=== PATIENT | female | born 1985 | race Caucasian/White ===

== ENCOUNTER → 2016-10-31 | Outpatient (CLI) | payer BC ==
--- NOTE | 2016-10-31 20:46 | REP ---
Clinical: Anatomical evaluation. Comparison: None . Findings: Examination demonstrates a single live intrauterine in cephalic presentation. motion is identified by technologist. Placenta is noted anteriorly and grade zero without evidence for placenta previa or abruption. Amniotic fluid volume is normal. Cervix measures 4.5 cm in length and appears closed. No evidence for nuchal cord. Gestational age by LMP 30 weeks 6 days with WILDA 01/03/2017 . Gestational age by current measurements 30 weeks 0 days with WILDA based 01/09/2017 . FHR equals 147 beats per minute. BPD 7.4 cm 29 weeks 5 day HC 28.1 cm 30 week 6 days AC 24.9 cm 29 weeks 1 day FL 5.8 cm 30 weeks 1 day HL 5.2 cm 830 weeks 2 days HC/AC ratio 1.13 Estimated weight 1428 grams ( 17th percentile). Amniotic fluid index equals 11.7 cm (8.8 - 23.8). Anatomical assessment demonstrates normal structures including lungs, four-chamber heart/ left ventricular outflow tract, diaphragm, stomach, cord insertion/three-vessel cord, kidneys/bladder, and lower extremities. New Suboptimal evaluation of the cranium, cord plexus, cavum, facial features, right cardiac ventricular outflow tracts, spine, and upper extremities noted. Impression: 1. Live intrauterine in cephalic presentation demonstrating appropriate interval growth. 2. Anatomical limitations as described above. Signed by Wily Conley MD 10/31/2016 05:15 P
== END ==
LOC: M RAD 14:41
PROVIDERS: ATTEND Obstetrics & Gynecology
DX: Z34.82 Encounter for supervision of other normal pregnancy, second trimester (principal)

== ENCOUNTER → 2016-11-12 | Outpatient (REF) | payer BC | LOC: M LAB REF 16:30 | PROVIDERS: ATTEND Advanced Practice Midwife | DX: Z34.83 Encounter for supervision of other normal pregnancy, third trimester (principal) ==

== ENCOUNTER → 2016-12-10 | Outpatient (REF) | payer OTHER | LOC: M LAB REF 13:32 | PROVIDERS: ATTEND Advanced Practice Midwife | DX: Z34.83 Encounter for supervision of other normal pregnancy, third trimester (principal) ==

== ENCOUNTER 2017-01-04 15:59 | Outpatient (CLI) | payer OTHER ==
[2017-01-04] VITALS (9 sets, daily range): BP systolic 130–157; BP diastolic 65–90
[~2017-01-04] VITALS: Ht 172.7 cm; Wt 138.0 kg
[2017-01-04 17:59] LABS: MEAN CORPUSCULAR HEMOGLOBIN 27.3 pg (27.0-33.0); MEAN CORPUSCULAR VOLUME 82.7 fl (80.0-96.0); RED CELL DISTRIBUTION WIDTH 13.7 % (11.5-14.5); WHITE BLOOD COUNT 11.4 K/mm3 (4.0-10.0)
[2017-01-04 18:19] LABS: ALT/SGPT 14 U/L (12-78); AST/SGOT 17 U/L (15-37); BILIRUBIN,TOTAL 0.4 MG/DL (0.2-1.0); CREATININE FOR GFR 0.61 MG/DL (0.55-1.02); GLOMERULAR FILTRATION RATE > 60.0 (>60); URIC ACID 6.3 MG/DL (2.6-6.0)
--- NOTE | 2017-01-10 02:10 | DSES ---
DATE OF ADMISSION: 01/04/2017 DATE OF DISCHARGE: 01/04/2017 HISTORY: 31-year-old (G) 2, para (P) 1 female at 40-1/7 weeks gestation presents with complaint of loss of fluid on the day of evaluation. She felt wet for most of the day. Denies contractions. Her care has been through [facility], Dr. Edouard. [place] care [place] of [place]. OBSTETRICAL HISTORY: She has a history of a section 2005. HOSPITAL COURSE: The patient was evaluated on multiple occasions for ruptured membranes. There was no evidence that that was the case. She had rare occasional elevated blood pressures, so had preeclampsia labs drawn, which were normal. She had some occasional contractions which occurred during her hospitalization, but no dilation of her cervix. The cervix remained unchanged. Fetus had a category 1 tracing at all times. Given the patient was stable, had no indication for delivery, the decision was made to discharge the patient home the same day. ADMISSION DIAGNOSIS: 40-1/7 weeks gestation, prior (C) section, reassuring testing. DISCHARGE DIAGNOSIS: 40-1/7 weeks gestation, prior (C) section, reassuring testing. The patient will followup with Dr. Edouard in two days. She will return with any concerns.
== END 2017-01-04 19:39 | disposition home or self-care (01) ==
LOC: M LDO 15:59
PROVIDERS: ATTEND Specialist
DX: O47.1 False labor at or after 37 completed weeks of gestation (principal); Z3A.40 40 weeks gestation of pregnancy

== ENCOUNTER 2017-01-05 07:08 | Inpatient (IN) | payer OTHER ==
[~2017-01-05] VITALS: Ht 162.6 cm; Wt 134.0 kg
[2017-01-05 07:25] VITALS: BP 137/71
[2017-01-05] MEDS ORDERED: LACTATED RINGER'S 1000 ML IV STA (07:43)
[2017-01-05] MEDS ORDERED: LR 1,000 ML IV SCH (07:43)
[2017-01-05] MEDS ORDERED: CLINDAMYCIN 900 MG in APPROPRIATE DILUENT 1 EA IV SCH (08:00)
[2017-01-05 08:16] LABS: MEAN CORPUSCULAR HEMOGLOBIN 27.3 pg (27.0-33.0); MEAN CORPUSCULAR HGB CONC 33.2 g/dl (32.0-36.5); MEAN CORPUSCULAR VOLUME 82.1 fl (80.0-96.0); WHITE BLOOD COUNT 8.4 K/mm3 (4.0-10.0)
--- NOTE | 2017-01-05 08:35 | HPE ---
DATE OF ADMISSION: 01/05/2017 31-year-old 2, para 1-0-0-1, estimated date of delivery 01/03/2017 presents at 40 weeks 2 days with reports of stronger contractions through the night. Denies loss of fluid or bleeding. Fetus is active. Last normal menstrual period 03/29/2016 for estimated date of delivery of 01/02/2017, sonogram at 8 weeks confirmed her date of 01/03/2017. Commenced care in [place] and transferred to [email or web address] at 32 weeks. Available anatomy reports show normal anatomy with exception of poor visualization of cardiac structures. Followup sono at 30 weeks showed growth of 17%, cephalic and normal cardiac anatomy. OBSTETRICAL HISTORY: 2007 primary for heart rate decelerations at 40 weeks, viable female. ALLERGIES: She is allergic to CODEINE, DEMEROL, MORPHINE, PENICILLIN, PENICILLIN CROSS REACTORS, SULFA, CIPRO. MEDICAL/SURGICAL HISTORY: History of anemia, tonsillectomy, appendectomy and section. FAMILY HISTORY: Breast and lung cancer, gastroesophageal reflux disease, and elevated cholesterol. SOCIAL HISTORY: Father of the baby is present and supportive. Denies tobacco, alcohol, drugs or abuse. History of Chlamydia. OBJECTIVE: Prepregnancy weight 302, total weight gain 11 pounds. O+, antibody negative, Pap within normal limits in 2013, rubella immune. VDRL, hep B, hep C, HIV, gonorrhea, Chlamydia all negative. [place] was low risk. 1-hour glucose 149. 3-hour 90, 155, 128 and 53. Group B strep is positive with sensitivities. Mildly uncomfortable. Vital signs are stable. Abdomen is obese, soft, gravid, longitudinal lie. Bedside sonogram confirms vertex presentation. heart 145, minimal to moderate variability. A few accelerations are present. Uterine contractions two to four minutes apart and mild. Sterile vaginal exam now 1-2 cm, 50% and -[address] Ge, changed from overnight. ASSESSMENT: Multip at term, early labor, previous , category 2 tracing. PLAN: Admit per consult Dr. Ge. The patient has expressed desire for trial of labor after section (TOLAC). Risks reviewed up to and including uterine rupture and consent has been obtained. Group B strep prophylaxis. The patient desires epidural. Consider Pitocin augmentation or artificial rupture of membranes as needed. Dr. Ge agrees with plan. Anticipate a successful TOLAC.
[2017-01-05 08:46] VITALS: BP 129/71
[2017-01-05 09:36] VITALS: BP 141/82
[2017-01-05 10:45] VITALS: BP 116/68
[2017-01-05 11:31] VITALS: BP 117/59
[2017-01-07] MEDS ORDERED: ADACEL/BOOSTRIX VACCINE (DIPHTH/PERTUSS/ACELL/TETANUS)0.5ML SYR (90715) IM ONE (09:00)
== END 2017-01-05 12:05 | disposition home or self-care (01) | DRG 566 ==
LOC: M LDO 07:08 → M LDI 07:40
PROVIDERS: ADMIT Specialist; ATTEND Specialist
DX: O48.0 Post-term pregnancy (principal); Z88.0 Allergy status to penicillin; Z3A.40 40 weeks gestation of pregnancy; Z88.2 Allergy status to sulfonamides; Z88.1 Allergy status to other antibiotic agents; Z88.5 Allergy status to narcotic agent; Z80.3 Family history of malignant neoplasm of breast; Z80.1 Family history of malignant neoplasm of trachea, bronchus and lung; Z83.79 Family history of other diseases of the digestive system

== ENCOUNTER 2017-01-06 14:59 | Inpatient (IN) | payer OTHER ==
[2017-01-06] VITALS (12 sets, daily range): BP systolic 125–167; BP diastolic 62–77
[~2017-01-06] VITALS: Ht 172.7 cm; Wt 138.0 kg
[2017-01-06] MEDS ORDERED: LR 1,000 ML IV SCH (15:15)
[2017-01-06] MEDS ORDERED: LACTATED RINGER'S 1000 ML IV ONE (15:15)
[2017-01-06 16:17] LABS: MEAN CORPUSCULAR HEMOGLOBIN 27.4 pg (27.0-33.0); MEAN CORPUSCULAR HGB CONC 32.9 g/dl (32.0-36.5); MEAN CORPUSCULAR VOLUME 83.1 fl (80.0-96.0); RED CELL DISTRIBUTION WIDTH 13.9 % (11.5-14.5); WHITE BLOOD COUNT 8.5 K/mm3 (4.0-10.0)
[2017-01-06 16:39] LABS: ALT/SGPT 14 U/L (12-78); AST/SGOT 16 U/L (15-37); BILIRUBIN,TOTAL 0.6 MG/DL (0.2-1.0); CREATININE FOR GFR 0.62 MG/DL (0.55-1.02); GLOMERULAR FILTRATION RATE > 60.0 (>60)
[2017-01-06] MEDS ORDERED: AZITHROMYCIN INJ 500 MG, VIAL MATE ADAPTER 1 EACH in D5W 250 ML IV ONE (19:30)
[2017-01-06] MEDS ORDERED: BICITRA 30ML SOLN UDC PO ONE (19:30)
[2017-01-06] MEDS ORDERED: OXYTOCIN INJ 10 UNITS/ML VIAL (J2590) As Ordered ONE (19:44)
[2017-01-06] MEDS ORDERED: MORPHINE PRES-FREE INJ 10 MG/10 ML VIAL (J2274) As Ordered ONE (19:45)
[2017-01-06] MEDS ORDERED: dexameTHASONE 4 MG/ML 1ML VIAL (J1100) As Ordered ONE (21:08)
[2017-01-06] MEDS ORDERED: NALBUPHINE HCL 10 MG/ML AMP (J2300) IV PRN (21:18)
[2017-01-06] MEDS ORDERED: NALOXONE INJ 0.4 MG/1 ML VIAL (J2310) IV PRN ×2 (21:18)
[2017-01-06] MEDS ORDERED: METOCLOPRAMIDE INJ 10MG/2ML VIAL (J2765) IV PRN (21:18)
[2017-01-06] MEDS ORDERED: ONDANSETRON 4MG/2ML VIAL (J2405) IV PRN ×3 (21:18→23:00)
[2017-01-06] MEDS ORDERED: ONDANSETRON 4MG/2ML VIAL (J2405) As Ordered ONE (21:35)
[2017-01-06] MEDS ORDERED: KETOROLAC 60 MG/2 ML VIAL (J1885) As Ordered ONE (21:35)
[2017-01-06] MEDS ORDERED: PHENYLephrine HCL 500 MCG/5 ML (100MCG/ML) SYRINGE (J2370) As Ordered ONE (21:35)
[2017-01-06] MEDS ORDERED: MEASLES,MUMPS,RUBELLA VACCINE INJ (MMR-II) (90707) SC SCH (22:45)
[2017-01-06] MEDS ORDERED: RHOGAM 300 MCG (1500 IU) INJ (J2790) IM SCH (22:45)
[2017-01-06] MEDS ORDERED: MOM 30ML SUSPENSION UDC PO PRN (22:45)
[2017-01-06 22:49] LABS: CORD GAS ABE V -3.3; CORD GAS HCO3 V 22.5 MEQ/L; CORD GAS O2 SAT V 44.3 %; CORD GAS PCO2 V 43.1 mmHg; CORD GAS PH V 7.336 UNITS; CORD GAS PO2 V 20.1 mmHg; CORD GAS SBC V 20.4 MEQ/L; CORD GAS TCO2 V 23.8 MEQ/L
[2017-01-06 22:52] LABS: CORD GAS ABE A -5.7; CORD GAS HCO3 A 21.2 MEQ/L; CORD GAS O2 SAT A 33.7 %; CORD GAS PCO2 A 46.8 mmHg; CORD GAS PH A 7.274 UNITS; CORD GAS PO2 A 16.6 mmHg; CORD GAS SBC A 18.4 MEQ/L; CORD GAS TCO2 A 22.6 MEQ/L
[2017-01-06] MEDS ORDERED: fentaNYL 100 MCG/2 ML INJECTION (J3010) IV PRN (23:00)
--- NOTE | 2017-01-06 23:11 | HPE ---
DATE OF ADMISSION: 01/06/2017 Margo is a 31-year-old female, 2, para 1-0-0-1 with a history of prior section, estimated date of delivery (EDC) 01/03/2017, estimated gestational age (EGA) 40-3/7 weeks gestation. The patient is being admitted for delivery via section. She wanted to try a trial of labor. However, at this point she is declining to proceed with a trial of labor. She does have -induced hypertension towards the last week of her . Upon evaluation in the office she was found to have an elevated blood pressure. The patient was originally scheduled for section on 01/10. Given her elevated blood pressure and the fact that she wants to proceed with repeat section a decision was made to admit her to the hospital for repeat section. Upon admission no bleeding or leakage of fluid. No headache. No blurred vision. Her record reviewed. The patient is obese, had a section for distress. Blood type is O+, rubella immune, hepatitis negative, HIV negative, GC chlamydia negative, 1-hour sugar testing was within normal limits. Her GBS is positive. PAST MEDICAL HISTORY: Significant for anemia. PAST SURGICAL HISTORY: section times one, appendectomy and tonsillectomy. SOCIAL HISTORY: She denies any alcohol or drug use. She had history of chlamydia back in 2012. FAMILY HISTORY: Significant for breast cancer, lung cancer and hypercholesterolemia. MEDICATIONS: vitamins. ALLERGIES: PENICILLIN, SULFA DRUGS and CIPRO. REVIEW OF SYSTEMS: Unremarkable. PHYSICAL EXAMINATION: Obese female in no acute distress. Abdomen: Soft, nontender, nondistended. Extremities: No clubbing, cyanosis or edema. Vaginal examination: Fingertip to 1 cm thick and posterior. Fetus at -3 station. Category one tracing with occasional contractions. ASSESSMENT: 1. Intrauterine at 40-3/7 weeks gestation with a history of prior section being admitted for elective repeat section. 2. -induced hypertension towards the last week of gestation. PLAN: Admit to labor and delivery. Routine labs sent. Informed consent signed for repeat section. Risks and benefits discussed with the patient. Will await OR for repeat section.
[2017-01-07] VITALS (9 sets, daily range): BP systolic 111–144; BP diastolic 59–76
[2017-01-07] MEDS: LR 1,000 ML IV SCH ×4 (02:55→22:31)
[2017-01-07] MEDS: IBUPROFEN 800 MG TAB PO SCH ×3 (06:00→21:33)
[2017-01-07 06:39] LABS: MEAN CORPUSCULAR HEMOGLOBIN 27.6 pg (27.0-33.0); MEAN CORPUSCULAR HGB CONC 33.3 g/dl (32.0-36.5); MEAN CORPUSCULAR VOLUME 82.8 fl (80.0-96.0); RED CELL DISTRIBUTION WIDTH 13.8 % (11.5-14.5); WHITE BLOOD COUNT 12.4 K/mm3 (4.0-10.0)
[2017-01-07] MEDS: PRENATAL VITAMINS CHEWABLE TABLET PO SCH (09:00)
[2017-01-07] MEDS: DOCUSATE SODIUM 100 MG CAP PO SCH ×2 (11:33→21:32)
[2017-01-08 05:59] VITALS: BP 127/60
[2017-01-08] MEDS: LR 1,000 ML IV SCH (06:31)
[2017-01-08] MEDS: IBUPROFEN 800 MG TAB PO SCH ×3 (06:44→22:19)
[2017-01-08] MEDS ORDERED: ACETAMINOPHEN 500 MG TAB PO PRN (07:45)
[2017-01-08] MEDS: DOCUSATE SODIUM 100 MG CAP PO SCH ×2 (09:00→19:44)
[2017-01-08] MEDS: PRENATAL VITAMINS CHEWABLE TABLET PO SCH (09:00)
[2017-01-08] MEDS: ONDANSETRON 4 MG TAB (S0181) PO PRN ×2 (11:55→19:43)
[2017-01-08] MEDS: NORCO, ANEXSIA 5/325MG TABLET (HYDROcodone/ACETAMINOPHEN) PO PRN ×2 (11:56→19:42)
--- NOTE | 2017-01-08 14:12 | RO ---
DATE OF PROCEDURE: 01/06/2017 Margo is a 31-year-old female 2, para 1-0-0-1 with a history of prior section who is being admitted at 40-3/7 weeks gestation with induced hypertension for elective repeat section. PREOPERATIVE DIAGNOSES: 1. Intrauterine at 40-3/7 weeks gestation with a history of prior section for elective repeat c/s 2. Elevated blood pressure. 3. Obesity POSTOPERATIVE DIAGNOSES: 1. Intrauterine at 40-3/7 weeks gestation with a history of prior section for elective repeat c/s 2. Elevated blood pressure. 3. Obesity 4. Meconium-stained fluid. 5. Nuchal cord times one. PROCEDURE: Repeat section. SURGEON: Steve Edouard DO AUTHORIZER: Roger Milton DO ANESTHESIA: Spinal. COMPLICATIONS: None. ESTIMATED BLOOD LOSS: 500 mL. FINDINGS: Live female infant in left occiput transverse position. scores of 8 and 9. weight 6 pounds 2 ounces. Normal-appearing placenta and ovaries. DESCRIPTION OF PROCEDURE: After obtaining informed consent, the patient was taken to the operating room where spinal anesthetic was found to be adequate. She was draped and prepped in the usual sterile fashion in supine position. At this point, an elliptical incision was made over the old scar. The old scar was removed. The incision was carried down to the fascia. The fascia was incised in a midline fashion and carried through laterally. Superior aspect of the fascia then grasped with two Johnnie clamps, tented off and dissected off the rectus muscles sharply. The inferior aspect was dissected in a similar fashion. Rectus muscles midline fashion. Perineum identified. Peritoneal cavity entered bluntly. Superior and inferior dissection was then grasped with two Johnnie clamps, tented off and dissected off the rectus muscles sharply. The inferior aspect was dissected off in a similar fashion. Rectus muscles midline fashion. Perineum identified. Peritoneal cavity entered bluntly. Superior and inferior dissection of peritoneum was then done with good visualization of the bladder. At this point a Mobius skin retractor was placed and a low-transverse uterine incision was made. was delivered in atraumatic fashion. Nose and mouth bulb suctioned. Cord doubly clamped and cut and was handed over to the waiting warmer. Cord blood and cord gas was sent. Placenta removed manually. Uterus cleared of all clot and debris and uterine incision was then repaired in two separate layers of #0 Vicryl sutures. Pelvis copiously irrigated with normal saline and suctioned out. Attention turned to the peritoneum, which was closed in a running fashion using #2-0 Vicryl. All superficial bleeders coagulated. Fascia closed in two separate segment of #0 Vicryl sutures and the skin was reapproximated in subcuticular fashion using #3-0 Vicryl on a Jorge. Steri-Strips placed. The patient tolerated procedure well. She was then transferred to the recovery room in stable condition. AGUSTIN
[2017-01-08 17:56] VITALS: BP 140/76
--- NOTE | 2017-01-08 19:11 | IPNPDOC ---
Date Seen The patient was seen on 01/08/17 at 0900. Progress Note SUBJECTIVE: Patient reports she has had pain but is afraid to take anything stronger than a Motrin because she gets terrible nausea from pain medication. Patient desires an antiemetic before she will take any type of narcotic. Reports she has been OOB and has been voiding. OBJECTIVE PHYSICAL EXAMINATION: VITAL SIGNS: Please see below. RESPIRATORY: Regular rate. No use of accessory muscles. ABDOMINAL: low transverse incision is approximated. Dry with no drainage. Steri- strips in place. PERINEUM: Lochia scant dark red. EXTREMITIES: Bilateral +1 pitting edema on feet and ankles. LABORATORY DATA: Please see below. ASSESSMENT: Day 2 . PLAN: Zofran and [place] ordered. Continue supportive nursing care. Anticipate discharge to home tomorrow. VS, I&O, 24H, Fishbone Vital Signs/I&O Vital Signs Date Time Temp Pulse Resp B/P (MAP) Pulse Ox O2 Delivery O2 Flow Rate FiO2 01/08/17 11:56 18 01/08/17 05:59 98.4 76 127/60 (82) 01/07/17 18:03 98 Room Air Laboratory Data CBC/BMP Item Value Date Time White Blood Count 12.4 K/mm3 H 01/07/17 0623 Red Blood Count 3.63 M/mm3 L 01/07/17 0623 Hemoglobin 10.0 g/dl L 01/07/17 0623 Hematocrit 30.1 % L 01/07/17 0623 Platelet Count 275 k/mm3 01/07/17 0623 LENO JACK CNM Jan 08, 2017 13:09
[2017-01-09] MEDS: IBUPROFEN 800 MG TAB PO SCH (05:08)
[2017-01-09 05:44] VITALS: BP 127/62
[2017-01-09] MEDS: PRENATAL VITAMINS CHEWABLE TABLET PO SCH (09:00)
[2017-01-09] MEDS: NORCO, ANEXSIA 5/325MG TABLET (HYDROcodone/ACETAMINOPHEN) PO PRN (09:21)
[2017-01-09] MEDS: DOCUSATE SODIUM 100 MG CAP PO SCH (09:21)
[2017-01-09] MEDS: ONDANSETRON 4 MG TAB (S0181) PO PRN (09:25)
[2017-01-09] MEDS ORDERED: PRENTAB9 PO (09:39)
[2017-01-09] MEDS ORDERED: IBUP-1114 PO (09:39)
[2017-01-09] MEDS ORDERED: ACET50TA PO (09:39)
--- NOTE | 2017-01-13 19:34 | DS.PDOC ---
Discharge Summary General Date of Admission Jan 06, 2017 at 14:59 Date of Discharge January 09, 2017. Attending Physician: Steve Edouard DO Discharge Summary PROCEDURES PERFORMED DURING STAY: Elective repeat section. ADMITTING DIAGNOSES: 1. IUP at 40 weeks 3 days gestation. 2. Gestational hypertension. 3. History of a section. DISCHARGE DIAGNOSES: 1. Day 3 postoperative from a low transverse elective repeat section. COMPLICATIONS/CHIEF COMPLAINT: Prior C/S. HISTORY OF PRESENT ILLNESS: Patient is a 31-year-old female who is now a 002 at 40 weeks 3 days gestation. Her has been complicated with a history of a prior at term and gestational hypertension. The patient previously desired a trial of labor but now declines the trial of labor and desires an elective repeat section. DISCHARGE MEDICATIONS: Please see below. [place] sent to pharmacy from office. ALLERGIES: Please see below. PHYSICAL EXAMINATION ON DISCHARGE: VITAL SIGNS: Please see below. GENERAL: A and O 3. RESPIRATORY EXAMINATION: Rate is regular. No use of accessory muscles. ABDOMINAL EXAMINATION: Low transverse abdominal incision: Edges are approximated. Steri-Strips are in place. No drainage noted. PERINEUM: Scant dark red vaginal bleeding. EXTREMITIES: Generalized edema located bilateral legs feet and ankles. LABORATORY DATA: Please see below. ACTIVITY: As tolerated. DIET: Regular. DISCHARGE INSTRUCTIONS: 1. Patient to be discharged to home. Follow-up in 2 weeks for incision check and 6 weeks .. 2. Education done with patient on mastitis, hemorrhage, endometritis, DVT's, pulmonary embolism, preeclamptic signs and symptoms, pain management, pelvic rest, was prepped depression and psychosis, signs symptoms of infection at the incision site, and incision care. Patient is to call office with any of these signs or symptoms. DISCHARGE CONDITION: Stable. Vital Signs/I&Os Vital Signs Date Time Temp Pulse Resp B/P (MAP) Pulse Ox O2 Delivery O2 Flow Rate FiO2 01/09/17 09:21 18 01/09/17 05:44 97.9 79 127/62 (83) 01/08/17 20:12 Room Air 01/07/17 18:03 98 Discharge Medications Scheduled Multivitamins/ ( 27-0.8 mg) 1 Tab Tab, 1 TAB PO DAILY, (Reported ) Scheduled PRN Acetaminophen (Mapap) 500 Mg Tab, 1,000 MG PO Q6HP PRN for PAIN, (Reported) Ibuprofen (Ibuprofen) 400 Mg Tab, 800 MG PO Q8HP PRN for PAIN, (Reported) Allergies Coded Allergies: Penicillins (Verified Allergy, Intermediate, HIVES, 12/27/16) Sulfa Drugs (Verified Allergy, Intermediate, HIVES, 12/27/16) Codeine (Verified Adverse Reaction, Mild, NAUSEA, 01/06/17) Meperidine (Verified Adverse Reaction, Mild, nausea/vomiting..dizziness, ) Morphine (Verified Adverse Reaction, Mild, nausea/vomiting..dizziness, ) LENO JACK CNM Jan 13, 2017 19:34
== END 2017-01-09 10:50 | disposition home or self-care (01) | DRG 540 ==
LOC: M LDI 14:59 → M OBS 01-07 00:22
PROVIDERS: ADMIT Obstetrics & Gynecology; ATTEND Obstetrics & Gynecology
PROC: 10D00Z1 Extraction of Products of Conception, Low, Open Approach (ICD-10-PCS; principal; 2017-01-06 09:40)
DX: O34.211 Maternal care for low transverse scar from previous cesarean delivery (principal); O13.4 Gestational [pregnancy-induced] hypertension without significant proteinuria, complicating childbirth; O99.214 Obesity complicating childbirth; E66.9 Obesity, unspecified; Z3A.40 40 weeks gestation of pregnancy; O99.824 Streptococcus B carrier state complicating childbirth; O69.82X0 Labor and delivery complicated by other cord entanglement, without compression, not applicable or unspecified; O77.0 Labor and delivery complicated by meconium in amniotic fluid; Z37.0 Single live birth

== ENCOUNTER → 2018-03-26 | Outpatient (REF) | payer OTHER | LOC: M LAB REF 17:31 | DX: J02.9 Acute pharyngitis, unspecified (principal) ==

== ENCOUNTER → 2020-01-05 | Outpatient (REF) | payer OTHER ==
[~2020-01-05] MED LIST: IBUP-1114 PO; MAPA500T2 PO; PRENTAB9 PO
== END ==
LOC: M LAB REF 11:36
PROVIDERS: ATTEND Obstetrics & Gynecology
DX: L66.2 Folliculitis decalvans (principal)

== ENCOUNTER → 2020-09-26 | Outpatient (REF) | payer OTHER ==
[2020-09-26 18:02] LABS: HEMATOCRIT 40.8 % (36.0-47.0); HEMOGLOBIN 12.5 g/dl (12.0-15.5); MEAN CORPUSCULAR HGB CONC 30.6 g/dl (32.0-36.5); MEAN CORPUSCULAR VOLUME 84.8 fl (80.0-96.0); PLATELET COUNT, AUTOMATED 459 10^3/uL (150-450); RED BLOOD COUNT 4.81 10^6/uL (4.00-5.40); WHITE BLOOD COUNT 11.1 10^3/uL (4.0-10.0)
[2020-09-26 18:40] LABS: HEMOGLOBIN A1c 5.2 %
[2020-09-26 19:07] LABS: HCG, SERUM QUANTITATIVE 17804 MIU/ML; HEPATITIS C VIRUS ABY INDEX < 0.0 INDEX (<0.8); HIV 1&2 SCREEN CENTAUR NEGATIVE (NEGATIVE)
== END ==
LOC: M LAB REF 16:34
PROVIDERS: ATTEND Advanced Practice Midwife
DX: O36.80X0 Pregnancy with inconclusive fetal viability, not applicable or unspecified (principal)

== ENCOUNTER → 2021-01-02 | Outpatient (CLI) | payer OTHER ==
--- NOTE | 2021-01-02 15:00 | REP ---
INDICATION: ANATOMY COMPARISON: None. TECHNIQUE: Transabdominal obstetrical ultrasound with color Doppler evaluation. FINDINGS: Examination demonstrates a single live intrauterine in transverse presentation. motion is identified by technologist. Placenta is noted anterior and grade 1 without evidence for placenta previa or abruption. Amniotic fluid volume is normal. Cervix measures 5.6 cm in length and appears closed.. Selected gestational age: 21 weeks 0 days with WILDA 05/15/2021. Gestational age by current measurements 20 weeks 2 days with WILDA 05/20/2021. FHR equals 143 beats per minute. Estimated weight 344 grams (15thpercentile). Anatomical assessment demonstrates normal structures including cranium, choroid plexus, cavum, cerebellum/posterior fossa, lungs, diaphragm, stomach, cord insertion/three-vessel cord, kidneys/bladder, spine, and extremities. IMPRESSION: Single live intrauterine in transverse lie demonstrating appropriate interval growth. Limited evaluation of the facial features and heart/ventricular outflow tracts. Remainder of the anatomical assessment is complete and normal. <Electronically signed by Wily Conley > 01/02/21 [id number]
== END ==
LOC: M WHC 13:55
PROVIDERS: ATTEND Obstetrics & Gynecology
DX: O34.212 Maternal care for vertical scar from previous cesarean delivery (principal); Z3A.21 21 weeks gestation of pregnancy

== ENCOUNTER → 2021-02-20 | Outpatient (CLI) | payer OTHER | LOC: M PLALAB 10:51 | PROVIDERS: ATTEND Obstetrics & Gynecology | DX: O34.212 Maternal care for vertical scar from previous cesarean delivery (principal); Z53.8 Procedure and treatment not carried out for other reasons ==

== ENCOUNTER → 2021-02-20 | Outpatient (CLI) | payer OTHER ==
[2021-02-20 13:26] LABS: HEMATOCRIT 38.6 % (36.0-47.0); HEMOGLOBIN 12.1 g/dl (12.0-15.5); MEAN CORPUSCULAR HEMOGLOBIN 26.4 pg (27.0-33.0); MEAN CORPUSCULAR HGB CONC 31.3 g/dl (32.0-36.5); MEAN CORPUSCULAR VOLUME 84.1 fl (80.0-96.0); PLATELET COUNT, AUTOMATED 368 10^3/uL (150-450); RED BLOOD COUNT 4.59 10^6/uL (4.00-5.40); WHITE BLOOD COUNT 9.8 10^3/uL (4.0-10.0)
== END ==
LOC: M PLALAB 10:49
PROVIDERS: ATTEND Advanced Practice Midwife
DX: Z34.92 Encounter for supervision of normal pregnancy, unspecified, second trimester (principal)

== ENCOUNTER → 2021-02-23 | Outpatient (CLI) | payer OTHER ==
--- NOTE | 2021-02-23 10:34 | REP ---
INDICATION: ANATOMY. FOLLOW-UP UPPER LIP, FOUR-CHAMBER HEART, AND VENTRICULAR OUTFLOW TRACKS COMPARISON: 01/02/2021 TECHNIQUE: Transabdominal scanning FINDINGS: Multiple ultrasonographic images of the gravid uterus shows a single living intrauterine gestation in the cephalic presentation. Doppler interrogation of the heart shows a heart rate of 144 beats per minute. The placenta is posterior and not low-lying. The cervix measures 4.3 cm in length and is closed. BPD: 7.2 cm 28 weeks 5 days HC: 26.0 cm 28 weeks 2 days AC: 24.1 cm 28 weeks 3 days FL: 4.8 cm 28 weeks 3 days The estimated weight is 1233 g which is at the 39th percentile for a 28 week 3 day gestational age. The subjective amniotic fluid volume is within normal limits. The calculated amniotic fluid index is 16.0 within expected range 9.3 to 22.9. The upper lip, four-chamber heart, and ventricular outflow tracts were seen to be unremarkable. IMPRESSION: Single living intrauterine gestation as described above with an estimated gestational age of 28 weeks 3 days via composite criteria and an estimated date of delivery of 05/15/2021 by today's exam. No anomalies were detected. <Electronically signed by Daquan Herrmann > 02/23/21 [id number]
== END ==
LOC: M WHC 08:26
PROVIDERS: ATTEND Obstetrics & Gynecology
DX: Z36.89 Encounter for other specified antenatal screening (principal); Z3A.28 28 weeks gestation of pregnancy

== ENCOUNTER → 2021-03-06 | Outpatient (CLI) | payer OTHER ==
[~2021-03-06] MED LIST changes: +FLON27.5 NARES; +IBUP80TA PO; +ONDA-83 PO; +OXYC1TAB23 PO; +TUMS500C PO
== END ==
LOC: M LAB 08:26
PROVIDERS: ATTEND Advanced Practice Midwife
DX: O99.810 Abnormal glucose complicating pregnancy (principal)

== ENCOUNTER → 2021-03-21 | Outpatient (REF) | payer OTHER ==
[~2021-03-21] MED LIST changes: -FLON27.5 NARES; -IBUP80TA PO; -ONDA-83 PO; -OXYC1TAB23 PO; -TUMS500C PO
== END ==
LOC: M SFHCWAGY 17:14
PROVIDERS: ATTEND Advanced Practice Midwife
DX: O26.899 Other specified pregnancy related conditions, unspecified trimester (principal)

== ENCOUNTER 2021-04-25 16:34 | Outpatient (CLI) | payer OTHER ==
[~2021-04-25] VITALS: Ht 172.7 cm; Wt 136.8 kg
[2021-04-25] VITALS (18 sets, daily range): BP systolic 106–191; BP diastolic 52–88
[2021-04-25] MEDS ORDERED: HOME MED LIST COMPLETE! XX SCH (17:15)
[2021-04-25 18:03] LABS: HEMOGLOBIN 11.5 g/dl (12.0-15.5); MEAN CORPUSCULAR HEMOGLOBIN 26.1 pg (27.0-33.0); MEAN CORPUSCULAR HGB CONC 31.9 g/dl (32.0-36.5); MEAN CORPUSCULAR VOLUME 81.6 fl (80.0-96.0); PLATELET COUNT, AUTOMATED 320 10^3/uL (150-450); RED BLOOD COUNT 4.41 10^6/uL (4.00-5.40); WHITE BLOOD COUNT 10.9 10^3/uL (4.0-10.0)
[2021-04-25 18:28] LABS: ALT/SGPT 15 U/L (12-78); BILIRUBIN,TOTAL 0.4 MG/DL (0.2-1.0); CREATININE FOR GFR 0.76 MG/DL (0.55-1.30); GLOMERULAR FILTRATION RATE > 60.0 (>60); LDH LACTATE DEHYDROGENASE 131 U/L (84-246); URIC ACID 6.3 MG/DL (2.6-6.0)
[2021-04-25 18:42] LABS: CREATININE,RANDOM URINE 33.8 MG/DL; TOTAL PROTEIN,RANDOM URINE < 5.0 MG/DL (0.0-12.0)
--- NOTE | 2021-04-25 21:33 | HPE ---
HISTORY AND PHYSICAL DATE OF ADMISSION: 04/25/2021 Margo is a 35-year-old 3, para 2-0-0-2 at 37 weeks and 1/7 days gestation with an estimated date of confinement (EDC) of 05/15/2021 based on last menstrual period (LMP) and first-trimester ultrasound. She presents to labor and delivery today following a routine appointment in the office, where she was noted to have an elevated blood pressure as well as report of a headache and bilateral lower extremity edema. She does report that her headache is decreased in intensity since arrival to labor and delivery, now 09/13, and she reports that the visual disturbances that she experienced early in the day have resolved. She denies vaginal bleeding, leakage of fluid, and painful contractions. The fetus has been active. Her care was initiated at [facility] in the first trimester with transfer of care to [facility] in the second trimester. Her course complicated by obesity, previous section times two with the desire for a trial of labor after section, as well as advanced maternal age. She did undergo noninvasive testing, and the results returned negative for anuploidy with a male fetus; however, of note, the male fetus chromosomes returned XXY. She did decline an amniocentesis for confirmation. OBSTETRIC HISTORY: May 2007, 39 weeks gestation, 6-pound 3-ounce female for primary section due to pre-eclampsia. September 2016, 40 weeks and 3 days, 6-pound 2-ounce female, repeat section. OBSTETRIC LABORATORY DATA: O positive, antibody screen negative, syphilis negative, hepatitis B negative, hepatitis C negative, HIV negative, rubella immune. Gestational diabetic screening elevated at 141. Three-hour glucose tolerance test fasting 96, 1-hour 195, 2-hour 159, and 3-hour 74. Urine culture no growth. GBS is unknown. PAST MEDICAL HISTORY: 1. Anemia. 2. History of methicillin-resistant Staphylococcus aureus (MRSA). 3. Labial abscess that had an incision and drainage 11/07/2020. 4. Abnormal Pap history with a loop electrosurgical excision procedure (LEEP) 5. Pre-eclampsia. SURGERIES: 1. section times two. 2. Appendectomy. 3. Tonsillectomy. 4. Colposcopy. FAMILY HISTORY: Hypercholesterolemia, breast cancer, lung cancer, and gastroesophageal reflux disease (GERD). SOCIAL HISTORY: The patient is . Her is at bedside and supportive. She is a teacher. She is a nonsmoker. Denies alcohol use. Denies drug use. She does have a remote history of chlamydia. She does deny history of abuse, physical, sexual, and emotional. ALLERGIES: PENICILLIN, SULFA, and CIPRO, which all cause hives and itching. CURRENT MEDICATIONS: vitamin. OBJECTIVE: Temperature 98.9, pulse 89, respirations 19, blood pressure (BP) minimally elevated at 143/87, 143/71, 133/86. She did have two pressures in the severe range during a discussion regarding a plan of care, and that likely primary section would be advised. heart rate is 120 with moderate variability, positive accelerations, negative decelerations. There is no pattern of contractions. Vaginal exam is deferred at this point. Her hemoglobin is 11.5, hematocrit 36.0, platelets 320. Creatinine 0.76, AST 18, ALT 15, uric acid 6.3. Her spot urine is too low to determine. COVID-19 negative. ASSESSMENT: Intrauterine at 37-1/7 weeks. heart rate is category 1. Gestational hypertension. PLAN: Observe the patient overnight. Nothing by mouth after midnight. Final plan of care will be determined when Dr. Ge arrives tomorrow to take over care, as he has spoken with the patient regarding repeat section versus induction of labor or awaiting a spontaneous labor. I did review the risks associated with waiting for spontaneous labor with elevated blood pressure, gestational hypertension. The patient did cry and become upset at the thought of having a repeat section. She was reassured when I told her that we will decide the final plan of care in the morning when Dr. Velázquez arrives, and she can have a long discussion regarding the plan with him, as she has been seeing him and had a prior discussion earlier in the day in the office. I will plan no monitoring overnight and will start monitoring again in the morning to allow her to get a good night's rest. All of the patient's questions have been answered, and she and her are agreeable to this plan at this point. AGUSTIN
[2021-04-26] VITALS (9 sets, daily range): BP systolic 107–147; BP diastolic 50–85
[2021-04-26] MEDS ORDERED: ACETAMINOPHEN 500 MG TAB PO ONE (10:55)
--- NOTE | 2021-04-26 13:38 | IPNPDOC ---
Text Note Date of Service The patient was seen on 04/26/21. NOTE Progress note S: Mild KIRKPATRICK; some relief with Tylenol. O: AVSS NAD Abd: NT, gravid FHT: Cat. I toco: none SVE: cx L/C/P ext: NT 35 yo at 37 2/7 weeks with gestational hypertension. Prior section x 2 I suggested proceeding with delivery via section today. pt wants to wait until Friday if possible. SHe has mixed feeling about repeat , as she was desirous of TOLAC Consent for signed Plan delivery by on 04/29/2021 VS,Fishbone, I+O VS, Fishbone, I+O Laboratory Tests 04/25/21 17:49 Vital Signs Date Time Temp Pulse Resp B/P (MAP) Pulse Ox O2 Delivery O2 Flow Rate FiO2 04/26/21 07:16 99.2 04/26/21 06:54 93 147/85 (105) 04/25/21 21:03 16 Room Air 04/25/21 16:55 99 EUN CANO MD Apr 26, 2021 13:37
== END 2021-04-26 13:15 | disposition home or self-care (01) ==
LOC: M LDO 16:34
PROVIDERS: ATTEND Advanced Practice Midwife
DX: O16.3 Unspecified maternal hypertension, third trimester (principal); R03.0 Elevated blood-pressure reading, without diagnosis of hypertension; Z3A.37 37 weeks gestation of pregnancy; O09.529 Supervision of elderly multigravida, unspecified trimester
CPT/HCPCS: 36415; 59025; 82247; 82565; 82570; 83615; 84156; 84450; 84460; 84550; 85027; 86780; 86850; 86900; 86901; G0378; G0463; U0002

== ENCOUNTER → 2021-04-25 | Outpatient (REF) | payer OTHER | LOC: M PLALAB 16:18 | PROVIDERS: ATTEND Specialist | DX: Z34.83 Encounter for supervision of other normal pregnancy, third trimester (principal) ==

== ENCOUNTER 2021-04-30 05:30 | Inpatient (IN) | payer OTHER ==
[2021-04-30] VITALS (8 sets, daily range): BP systolic 114–159; BP diastolic 54–94
[~2021-04-30] VITALS: Ht 170.2 cm; Wt 136.5 kg
[2021-04-30] MEDS ORDERED: TUMS500C PO (06:08)
[2021-04-30] MEDS ORDERED: FLON27.5 NARES (06:09)
[2021-04-30] MEDS ORDERED: HOME MED LIST COMPLETE! XX SCH (06:15)
[2021-04-30 06:30] LABS: HEMATOCRIT 37.1 % (36.0-47.0); HEMOGLOBIN 11.7 g/dl (12.0-15.5); MEAN CORPUSCULAR HEMOGLOBIN 25.9 pg (27.0-33.0); MEAN CORPUSCULAR HGB CONC 31.5 g/dl (32.0-36.5); MEAN CORPUSCULAR VOLUME 82.3 fl (80.0-96.0); PLATELET COUNT, AUTOMATED 336 10^3/uL (150-450); RED BLOOD COUNT 4.51 10^6/uL (4.00-5.40); WHITE BLOOD COUNT 8.9 10^3/uL (4.0-10.0)
[2021-04-30] MEDS ORDERED: LACTATED RINGER'S 1000 ML IV STA (07:06)
[2021-04-30] MEDS ORDERED: LR 1,000 ML IV SCH (07:10)
[2021-04-30] MEDS ORDERED: BICITRA 30ML SOLN UDC PO ONE (07:10)
[2021-04-30] MEDS ORDERED: ceFAZolin SOD 2 GM in IV 1 EA IV ONE (07:10)
[2021-04-30] MEDS ORDERED: diphenhydrAMINE 50MG/ML VIAL (J1200) IV PRN (08:39)
[2021-04-30] MEDS ORDERED: ONDANSETRON 4MG/2ML VIAL IV PRN ×2 (08:39→10:05)
[2021-04-30] MEDS ORDERED: NALBUPHINE HCL 10 MG/ML AMP (J2300) IV PRN (08:39)
[2021-04-30] MEDS ORDERED: NALOXONE INJ 0.4MG/1ML VIAL (J2310 PER 1MG) IV PRN ×2 (08:39)
[2021-04-30] MEDS ORDERED: METOCLOPRAMIDE INJ 10MG/2ML VIAL (J2765 PER 1) IV PRN (08:39)
[2021-04-30] MEDS ORDERED: OXYTOCIN INJ 10 UNITS/ML VIAL (J2590) As Ordered ONE (08:51)
[2021-04-30] MEDS ORDERED: ONDANSETRON 4MG/2ML VIAL As Ordered ONE (08:51)
[2021-04-30] MEDS ORDERED: METOCLOPRAMIDE INJ 10MG/2ML VIAL (J2765 PER 1) As Ordered ONE (08:51)
[2021-04-30] MEDS ORDERED: MORPHINE PRES-FREE INJ 10 MG/10 ML VIAL (J2274) As Ordered ONE (08:51)
[2021-04-30] MEDS ORDERED: PHENYLephrine 500MCG 5ML (100MCG/ML) SYRINGE As Ordered ONE (08:51)
--- NOTE | 2021-04-30 09:42 | ROOPDOC ---
[facility] Report Of Operation Report of Operation DATE OF PROCEDURE: 04/30/21 Report of operation Preoperative diagnosis: 37 6/7 weeks, prior section x2, gestational hypertension Postoperative diagnosis: Same Procedure: Repeat low transverse section Surgeon: Eun Cano M.D. Asst.: Mirian Carpenter CNM EBL: 500 ml. Urine output: 100 mL's. Findings: 5 lbs. 6 oz. (2430 g) male , 's 9 and 9, nuchal cord x3, normal uterus, fallopian tubes, ovaries. Operative summary: Patient taken to the operating room where spinal anesthesia was induced. She was prepped and draped in a sterile fashion in the supine position. A Hanley catheter was placed. A Pfannenstiel skin incision was made with scalpel. Fascia was incised and extended bilaterally. The fascia was dissected off the rectus muscles. The peritoneal cavity was entered. A Mobius retractor was placed. A bladder flap was created. A curvilinear incision was made in lower uterine segment until Clear fluid was noted. The incision was extended manually. The was delivered from the vertex position without difficulty. Nuchal cord x3 was reduced manually. Cord was double clamped and cut. The was handed to the awaiting nurses. The placenta was expressed. Uterus was closed with O-Vicryl in a running locked fashion. A second imbricating layer of Vicryl was placed. Peritoneum was closed with 2-0 Vicryl a running fashion. Fascia was closed with 0 Vicryl in running fashion. Skin was closed 4-0 Monocryl subcuticular sutures. Sponge, instrument and needle counts were correct. Mirian Carpenter CNM, assisted with all aspects of the procedure. She helped close each layer of the incision and deliver the fetus. EUN CANO MD Apr 30, 2021 09:42
[2021-04-30] MEDS ORDERED: PERCOCET 5MG/325MG TAB PO PRN ×2 (09:45)
[2021-04-30] MEDS ORDERED: OXYTOCIN DRIP 30 UNITS in IV 1 EA IV SCH (09:45)
[2021-04-30] MEDS ORDERED: MEASLES,MUMPS,RUBELLA VACCINE INJ (MMR-II) (90707) SC SCH (09:45)
[2021-04-30] MEDS ORDERED: RHOGAM 300 MCG (1500 IU) INJ (J2790) IM SCH (09:45)
[2021-04-30] MEDS ORDERED: SIMETHICONE 80MG CHEW TAB PO PRN (09:45)
[2021-04-30] MEDS ORDERED: OXYC1TAB23 PO (09:47)
[2021-04-30] MEDS ORDERED: IBUP80TA PO (09:47)
[2021-04-30] MEDS ORDERED: ePHEDrine SULFATE 25 MG/5 ML(5MG/ML) SYRINGE As Ordered ONE (09:52)
[2021-04-30] MEDS ORDERED: KETOROLAC 30 MG/ML 1ML VIAL IV PRN (10:05)
[2021-04-30] MEDS ORDERED: oxyCODONE 5MG TAB PO PRN (10:05)
[2021-04-30] MEDS ORDERED: OXYTOCIN 30 UNITS IN 0.9% NaCl 500ML IV BAG (J2590) As Ordered ONE (10:15)
[2021-04-30] MEDS ORDERED: LACTATED RINGER'S 1000 ML IV ONE (10:25)
[2021-04-30] MEDS ORDERED: ePHEDrine SULFATE 25 MG/5 ML(5MG/ML) SYRINGE IV PRN (10:25)
[2021-04-30] MEDS: KETOROLAC 30 MG/ML 1ML VIAL IV SCH ×2 (13:16→18:28)
[2021-04-30] MEDS: LR 1,000 ML IV SCH ×2 (15:09→18:28)
[2021-04-30] MEDS: ONDANSETRON 4MG/2ML VIAL IV PRN (18:29)
[2021-05-01] MEDS: LR 1,000 ML IV SCH (01:45)
[2021-05-01 01:52] VITALS: BP 104/55
[2021-05-01] MEDS: ONDANSETRON 4MG/2ML VIAL IV PRN (02:08)
[2021-05-01] MEDS: KETOROLAC 30 MG/ML 1ML VIAL IV SCH ×2 (02:09→06:21)
[2021-05-01 05:53] VITALS: BP 103/55
[2021-05-01] MEDS: PRENATAL VITAMINS CHEWABLE TABLET PO SCH (09:25)
[2021-05-01 10:04] VITALS: BP 113/58
[2021-05-01 10:28] LABS: HEMATOCRIT 34.5 % (36.0-47.0); HEMOGLOBIN 10.7 g/dl (12.0-15.5); MEAN CORPUSCULAR HEMOGLOBIN 26.1 pg (27.0-33.0); MEAN CORPUSCULAR VOLUME 84.1 fl (80.0-96.0); PLATELET COUNT, AUTOMATED 302 10^3/uL (150-450); WHITE BLOOD COUNT 10.3 10^3/uL (4.0-10.0)
[2021-05-01] MEDS ORDERED: SLF 3 ML SYR IV PRN (11:20)
[2021-05-01 14:00] VITALS: BP 122/57
[2021-05-01] MEDS ORDERED: ONDANSETRON 4 MG TAB PO PRN (14:15)
[2021-05-01] MEDS ORDERED: ONDANSETRON 4MG/2ML VIAL IV PRN (14:15)
--- NOTE | 2021-05-01 14:18 | IPNPDOC ---
Progress Note Date of Service: May 01, 2021 Day#: 1 Progress Note SUBJECT: Status post RLTCS She has been ambulating, voiding spontaneously without issue and tolerating regular diet. Lochia decreasing/minimal. Pain is well-controlled. Incision bandage is clean/unsaturated. Denies headache, visual changes, right upper quadrant pain, shortness of breath or chest pain. OBJECTIVE: VITAL SIGNS: Within normal limits, afebrile. Alert and oriented times three. Abdomen: Fundus firm at U-2. Soft, NTTP. Incision bandage not soaked through ASSESSMENT: Status post uncomplicated RLTCS. Vitals within normal limits, afebrile, hemodynamically stable with no evidence of infection. PLAN: Discharge to home tomorrow Routine /postoperative advancement Postoperative instructions/precautions reviewed. Routine PP visit at 2 and 6 weeks in clinic. VS, I&O, 24H, Fishbone Vital Signs/I&O Vital Signs Date Time Temp Pulse Resp B/P (MAP) Pulse Ox O2 Delivery O2 Flow Rate FiO2 05/01/21 10:04 97.7 85 18 113/58 (76) 97 Room Air I&O- Last 24 Hours up to 6 AM 05/01/21 06:00 Intake Total 3050 ml Output Total 1500 ml Balance 1550 ml Laboratory Data 24H LABS Laboratory Tests 2 05/01/21 08:33: Methicillin-Resist S.aureus DNA PCR NOT DETECTED 05/01/21 09:40: Nucleated Red Blood Cells % (auto) 0.0 CBC/BMP Laboratory Tests 05/01/21 09:40 TITA CORTEZ DO May 01, 2021 14:18
[2021-05-01] MEDS: IBUPROFEN 800 MG TAB PO SCH ×2 (14:41→21:57)
[2021-05-01] MEDS: SLF 3 ML SYR IV SCH ×2 (14:49→15:46)
[2021-05-01 18:00] VITALS: BP 119/58
[2021-05-01] MEDS ORDERED: DOCUSATE SODIUM 100MG CAPSULE PO PRN (19:25)
[2021-05-01 22:07] VITALS: BP 109/55
[2021-05-02 02:12] VITALS: BP 132/61
[2021-05-02 06:25] VITALS: BP 146/65
[2021-05-02] MEDS: IBUPROFEN 800 MG TAB PO SCH (06:26)
[2021-05-02] MEDS: PRENATAL VITAMINS CHEWABLE TABLET PO SCH (10:54)
[2021-05-02] MEDS ORDERED: ONDA-83 PO (11:23)
--- NOTE | 2021-05-02 12:08 | DSES ---
DISCHARGE SUMMARY DATE OF ADMISSION: 04/30/2021 DATE OF DISCHARGE: 05/02/2021 DISCHARGE DIAGNOSIS: Repeat section at term, gestational hypertension, stable for discharge. SURGEON: Dr. Jan Ge. SHRIMP HEADER: Mirian Carpenter CNM. HISTORY: Margo is a 35-year-old 3, para 3-0-0-3 now, who was admitted to Labor and Delivery for repeat section at 37-6/7ths weeks gestation with a diagnosis of gestational hypertension and prior section x2. She did undergo an uncomplicated section. Estimated blood loss was 500 mL. Delivered a live male infant, 5 pounds 6 ounces, 2430 grams. Apgars were 9 and 9. Subjectively, patient has been out of bed for self care, luis care, and care. Her pain has been well controlled with p.o. pain medications at this time. She has not required any antihypertensive treatment . is well established. She is voiding without difficulty. Positive flatus as well as positive bowel movement. She is tolerated p.o. fluids and a regular diet at this time. OBJECTIVE: Temperature 97.8, pulse 68, respirations 18, BP 146/65. Preoperative CBC on 04/30 with a hemoglobin of 11.7, hematocrit 37.1, and platelets 336. Postoperative CBC on 05/01 with a hemoglobin of 10.7, hematocrit 34.5, and platelets 302. Her breasts are soft, nontender. Nipples are intact. Abdomen: Fundus firm at umbilicus. Her incision has Optifoam dressing applied. There is no new drainage observed. Perineum is intact with lochia rubra scant. Bilateral lower extremities with 1+ pitting edema still present. PLAN: Discharge the patient home. She is to follow up at [facility] for a two week incision check, one week blood pressure check, and an eight week appointment. Pain medications have been E-prescribed by Dr. Jan Ge to the patient's pharmacy. She also reports that she did request some Zofran for nausea. Discharge instructions with the patient have been reviewed to include breast care, incision care, luis care, pelvic rest, activity and lifting restrictions, access to her care provider, danger signs in which to report, signs and symptoms of mastitis as well as endometritis. The patient and her have had all of their questions answered and are agreeable to discharge home today.
== END 2021-05-02 12:45 | disposition home or self-care (01) | DRG 788 ==
LOC: EEVIPCON 05:30 → M LDI 05:30 → M OBS 11:48
PROVIDERS: ADMIT Specialist; ATTEND Specialist
PROC: 10D00Z1 Extraction of Products of Conception, Low, Open Approach (ICD-10-PCS; principal; 2021-04-30 08:30)
DX: O34.211 Maternal care for low transverse scar from previous cesarean delivery (principal); Z3A.37 37 weeks gestation of pregnancy; O13.4 Gestational [pregnancy-induced] hypertension without significant proteinuria, complicating childbirth; O69.81X0 Labor and delivery complicated by cord around neck, without compression, not applicable or unspecified; Z37.0 Single live birth

== ENCOUNTER → 2021-09-17 | Outpatient (REF) | payer OTHER ==
[~2021-09-17] MED LIST changes: +FLON27.5 NARES; +IBUP80TA PO; +ONDA-83 PO; +OXYC1TAB23 PO; +TUMS500C PO
== END ==
LOC: M SFHCWAGY 10:27
PROVIDERS: ATTEND Specialist
DX: Z12.4 Encounter for screening for malignant neoplasm of cervix (principal)
CPT/HCPCS: 87624; G0123

== ENCOUNTER → 2022-08-27 | Outpatient (REF) | payer OTHER | LOC: M LAB REF 17:11 | PROVIDERS: ATTEND Internal Medicine | DX: I10 Essential (primary) hypertension (principal) ==

== ENCOUNTER → 2022-09-23 | Outpatient (CLI) | payer OTHER | LOC: M WHC 09:27 | PROVIDERS: ATTEND Nurse Practitioner Family | DX: Z12.31 Encounter for screening mammogram for malignant neoplasm of breast (principal) ==

== ENCOUNTER → 2023-07-21 | Outpatient (REF) | payer OTHER | LOC: M LAB REF 16:03 | PROVIDERS: ATTEND Internal Medicine | DX: R53.83 Other fatigue (principal) ==

== ENCOUNTER → 2024-08-06 | Outpatient (REF) | payer OTHER ==
[2024-08-06 14:18] LABS: BASO # 0.1 10^3/uL (0.0-0.2); BASO % 0.6 % (0.0-1.0); EOS # 0.2 10^3/uL (0.0-0.5); EOS % 2.1 % (0.0-3.0); HEMATOCRIT 41.5 % (36.0-47.0); HEMOGLOBIN 13.3 g/dl (12.0-15.5); LYMPH # 2.4 10^3/uL (1.5-5.0); LYMPH % 27.3 % (24.0-44.0); MEAN CORPUSCULAR HEMOGLOBIN 27.2 pg (27.0-33.0); MEAN CORPUSCULAR VOLUME 84.9 fl (80.0-96.0); MONO # 0.6 10^3/uL (0.0-0.8); MONO % 7.2 % (2.0-8.0); NEUTROPHILS # 5.5 10^3/uL (1.5-8.5); NEUTROPHILS % 62.6 % (36.0-66.0); PLATELET COUNT, AUTOMATED 426 10^3/uL (150-450); RED BLOOD COUNT 4.89 10^6/uL (4.00-5.40); WHITE BLOOD COUNT 8.7 10^3/uL (4.0-10.0)
[2024-08-06 14:20] LABS: ALBUMIN 3.3 G/DL (3.2-5.2); ALKALINE PHOSPHATASE 68 U/L (35-104); ALT/SGPT 14 U/L (7.0-40); AST/SGOT 9 U/L (<34); BILIRUBIN,TOTAL 1.2 MG/DL (0.3-1.2); BLOOD UREA NITROGEN 13 MG/DL (9-23); CALCIUM LEVEL 8.8 MG/DL (8.5-10.1); CARBON DIOXIDE LEVEL 29 MMOL/L (20-31); CHLORIDE LEVEL 106 MMOL/L (98-107); CHOLESTEROL LEVEL 125 MG/DL (<200); CHOLESTEROL RISK RATIO 3.56 (<5); GLOMERULAR FILTRATION RATE > 60.0 (>60); GLUCOSE, FASTING 92 MG/DL (60-100); HDL CHOLESTEROL 35.1 MG/DL (>40); IRON (FE) 66 UG/DL (50-170); LDL CHOLESTEROL 79.1 MG/DL (<100); NON-HDL-C 89.9 MG/DL; PERCENT SATURATION 21.2 % (13.2-45.0); POTASSIUM SERUM 4.9 MMOL/L (3.5-5.1); SODIUM LEVEL 143 MMOL/L (136-145); TOTAL IRON BINDING CAPACITY 312 UG/DL (250-425); TOTAL PROTEIN 6.6 G/DL (5.7-8.2); TRIGLYCERIDES LEVEL 54 MG/DL (<150)
[2024-08-06 14:22] LABS: FERRITIN 43.1 NG/ML (7.3-270.7)
[2024-08-06 14:45] LABS: HEMOGLOBIN A1c 5.4 % (4.0-6.0)
== END ==
LOC: M LAB REF 12:42
PROVIDERS: ATTEND Student in an Organized Health Care Education/Training Program
DX: Z13.220 Encounter for screening for lipoid disorders (principal); Z76.89 Persons encountering health services in other specified circumstances; Z86.2 Personal history of diseases of the blood and blood-forming organs and certain disorders involving the immune mechanism; Z86.39 Personal history of other endocrine, nutritional and metabolic disease

== ENCOUNTER → 2024-09-30 | Outpatient (REF) | payer OTHER ==
[2024-10-01 12:22] LABS: Trichomonas vaginalis (AMP) NOT DETECTED (NEGATIVE)
[2024-10-01 12:46] LABS: GC DNA AMPLIFICATION NEGATIVE (NEGATIVE)
[2024-10-05 11:54] LABS: HPV APTIMA Not Detected (Not Detected)
== END ==
LOC: M SFHCWAGY 10:17
PROVIDERS: ATTEND Nurse Practitioner Family
DX: N73.9 Female pelvic inflammatory disease, unspecified (principal); Z12.4 Encounter for screening for malignant neoplasm of cervix; Z77.9 Other contact with and (suspected) exposures hazardous to health; Z11.3 Encounter for screening for infections with a predominantly sexual mode of transmission
CPT/HCPCS: 87070; 87077; 87186; 87624; 87661; 87810; 87850; G0123

== ENCOUNTER → 2024-09-30 | Outpatient (CLI) | payer OTHER | LOC: M WHC 15:32 | PROVIDERS: ATTEND Nurse Practitioner Family | DX: Z12.31 Encounter for screening mammogram for malignant neoplasm of breast (principal); Z53.8 Procedure and treatment not carried out for other reasons ==